=== PATIENT | male | born 1995 | race Caucasian/White ===

== ENCOUNTER 2018-02-15 07:55 | Emergency (ER) | payer OTHER ==
[~2018-02-15] VITALS: Ht 198.1 cm; Wt 79.4 kg
[~2018-02-15 07:55] MED LIST: ADDERALL 20 MG20 M1; AMOXICILLIN 50500 MG PO; AUGMENTIN 875875 MG PO; CARAFATE1 GM/10 ML PO; CEPHALEXIN 500500 M1; FLEXERIL PO; HYDROCODONE-AP1 EAC6 PO; IBUPROFEN 800800 MG PO; NAPROSYN500 MG PO; NORCO 5-325 TA1 EACH PO; ONDANSETRON HCL4 M2 PO; PENICILLIN V P500 MG PO; PEPCID20 MG PO; PERCOCET; PERCOCET PO; PRILOSEC 20 MG20 MG PO; PRILOSEC40 MG PO; ROBAXIN500 MG PO; TORADOL 10 MG T10 MG PO; TUMS; ULTRACET TABLE1 EACH PO; XANAX 0.5 MG0.5 M1; XANAX 0.5 MG0.5 MG PO; XANAX XR1 MG; XANAX1 MG PO; ZANTAC 150MG T150 M1 PO; ZANTAC 150MG T150 MG PO
[2018-02-15 08:03] VITALS: BP 125/71
[2018-02-15] MEDS ORDERED: PREDNISONE 20 M20 M1 PO (08:11)
[2018-02-15] MEDS ORDERED: ZPAK PO (08:11)
== END 2018-02-15 08:20 | disposition home or self-care (01) ==
LOC: M.ERS 07:55
DX: J40 Bronchitis, not specified as acute or chronic (principal); F41.9 Anxiety disorder, unspecified; M41.9 Scoliosis, unspecified; F17.210 Nicotine dependence, cigarettes, uncomplicated; Z88.2 Allergy status to sulfonamides; Z88.6 Allergy status to analgesic agent; Z88.1 Allergy status to other antibiotic agents

== ENCOUNTER 2018-02-26 12:56 | Emergency (ER) | payer OTHER ==
[~2018-02-26] VITALS: Ht 200.7 cm; Wt 77.1 kg
[~2018-02-26 12:56] MED LIST changes: +PREDNISONE 20 M20 M1 PO; +ZPAK PO
[2018-02-26 14:38] VITALS: BP 132/72
== END 2018-02-26 14:39 | disposition home or self-care (01) ==
LOC: M.ERS 12:56
DX: S51.011A Laceration without foreign body of right elbow, initial encounter (principal); F41.9 Anxiety disorder, unspecified; F17.210 Nicotine dependence, cigarettes, uncomplicated; Z88.2 Allergy status to sulfonamides; Z88.8 Allergy status to other drugs, medicaments and biological substances; W17.89XA Other fall from one level to another, initial encounter; Y93.89 Activity, other specified; Y92.89 Other specified places as the place of occurrence of the external cause; Y99.8 Other external cause status

== ENCOUNTER 2018-11-02 18:49 | Emergency (ER) | payer OTHER ==
[~2018-11-02] VITALS: Ht 198.1 cm; Wt 79.4 kg
[2018-11-02] MEDS ORDERED: KEFLEX500 M1 PO (19:50)
[2018-11-02 20:00] VITALS: BP 110/70
== END 2018-11-02 20:00 | disposition home or self-care (01) ==
LOC: M.ERS 18:49
DX: L30.9 Dermatitis, unspecified (principal); F41.9 Anxiety disorder, unspecified; M41.9 Scoliosis, unspecified; Z88.1 Allergy status to other antibiotic agents; Z88.2 Allergy status to sulfonamides; Z88.6 Allergy status to analgesic agent

== ENCOUNTER 2019-08-15 02:49 | Emergency (ER) | payer OTHER ==
[~2019-08-15 02:49] MED LIST changes: +KEFLEX500 M1 PO
== END 2019-08-15 03:02 | disposition left against medical advice (07) ==
LOC: M.ERS 02:49
DX: Z53.21 Procedure and treatment not carried out due to patient leaving prior to being seen by health care provider (principal)

== ENCOUNTER 2019-08-15 21:02 | Emergency (ER) | payer OTHER | END 2019-08-15 21:05 | disposition left against medical advice (07) | LOC: M.ERS 21:02 | DX: Z53.21 Procedure and treatment not carried out due to patient leaving prior to being seen by health care provider (principal) ==

== ENCOUNTER 2019-08-16 00:10 | Emergency (ER) | payer OTHER ==
[~2019-08-16] VITALS: Ht 182.9 cm; Wt 63.5 kg
[2019-08-16 00:55] LABS: ABSOLUTE EOSINOPHILS 0.1 thou/uL (0.0-0.7); ABSOLUTE LYMPHOCYTES 2.1 thou/uL (0.8-5.3); ABSOLUTE MONOCYTES 0.6 thou/uL (0.0-1.2); ABSOLUTE NEUTROPHILS 3.7 thou/uL (1.6-8.1); BASOPHILS 0.7 %; EOSINOPHILS 1.6 %; HEMATOCRIT 40.4 % (42.0-52.0); HEMOGLOBIN 14.1 gm/dL (14.0-18.0); LYMPHOCYTES 32.8 %; MCH 30.2 pg (26.0-34.0); MCV 86.4 fL (80.0-100.0); MONOCYTES 8.6 %; MPV 9.2 fl. (7.2-11.1); NUCLEATED RBCS 0 /100WBC; PLATELET COUNT* 184 thou/uL (150-400); POLYS 56.3 %; RBC 4.67 mil/uL (4.50-6.00); RDW-CV 12.7 % (10.5-14.5); WBC 6.5 thou/uL (4.0-11.0)
[2019-08-16 01:02] LABS: CALCIUM 8.2 mg/dL (8.5-10.1); CREATININE 1.1 mg/dL (0.6-1.3); POTASSIUM 3.4 mmol/L (3.5-5.1)
[2019-08-16 01:07] LABS: ALBUMIN 3.6 g/dL (3.4-5.0); TOTAL BILIRUBIN 0.6 mg/dL (<0.1-1.0); TOTAL PROTEIN 6.6 g/dL (6.4-8.2)
[2019-08-16 01:17] LABS: AMP/METHAMP POSITIVE (Negative); BARBITURATES Negative (Negative); BENZODIAZEPINES Negative (Negative); COCAINE Negative (Negative); METHADONE Negative (Negative); OPIATES Negative (Negative); PCP Negative (Negative); THC POSITIVE (Negative)
[2019-08-16 01:19] LABS: APTT 29.1 Seconds (25.0-31.3); INR 1.1; PROTIME 11.5 Seconds (9.20-11.50)
[2019-08-16 06:15] VITALS: BP 101/60
--- NOTE | 2019-08-16 15:39 | EKG ---
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 : 1995 Requested By: Aida Carranza Order Number: [id number] MD: Aniket Mckinney Measurements Intervals [place] Rate: 75 P: 61 ND: 165 QRS: 33 QRSD: 107 T: 60 QT: 400 QTc: 447 Interpretive Statements Sinus rhythm Compared to ECG 04/25/2014 00:22:40 Sinus bradycardia no longer present Sinus arrhythmia no longer present Electronically Signed On 08-16-2019 15:39:03 CDT by Aniket Mckinney [email or web address] <ELECTRONICALLY SIGNED> By: Aniket Mckinney MD, [facility] 08/16/19 1539 0017 0017 Aniket Mckinney MD, [facility] /EPI
== END 2019-08-16 06:15 | disposition home or self-care (01) ==
LOC: M.ERS 00:10
PROVIDERS: Personal Emergency Response Attendant
DX: F15.929 Other stimulant use, unspecified with intoxication, unspecified (principal); R07.89 Other chest pain; F17.210 Nicotine dependence, cigarettes, uncomplicated; M41.9 Scoliosis, unspecified; Z88.1 Allergy status to other antibiotic agents; Z88.6 Allergy status to analgesic agent; Z88.8 Allergy status to other drugs, medicaments and biological substances

== ENCOUNTER 2019-09-04 11:18 | Emergency (ER) | payer OTHER ==
[~2019-09-04] VITALS: Ht 195.6 cm; Wt 77.1 kg
[2019-09-04 11:30] VITALS: BP 106/70
== END 2019-09-04 11:56 | disposition left against medical advice (07) ==
LOC: M.ERS 11:18
DX: M54.5 Low back pain (principal); M41.9 Scoliosis, unspecified; F17.210 Nicotine dependence, cigarettes, uncomplicated; Z88.2 Allergy status to sulfonamides; Z88.1 Allergy status to other antibiotic agents; Z88.6 Allergy status to analgesic agent

== ENCOUNTER 2019-11-30 02:32 | Emergency (ER) | payer OTHER ==
[~2019-11-30] VITALS: Ht 198.1 cm; Wt 81.7 kg
[2019-11-30 02:55] LABS: ABSOLUTE EOSINOPHILS 0.1 thou/uL (0.0-0.7); ABSOLUTE LYMPHOCYTES 1.8 thou/uL (0.8-5.3); ABSOLUTE MONOCYTES 0.9 thou/uL (0.0-1.2); ABSOLUTE NEUTROPHILS 5.1 thou/uL (1.6-8.1); BASOPHILS 0.4 %; EOSINOPHILS 0.8 %; HEMATOCRIT 49.4 % (42.0-52.0); HEMOGLOBIN 17.4 gm/dL (14.0-18.0); LYMPHOCYTES 22.9 %; MCHC 35.1 g/dL (28.0-37.0); MCV 88.3 fL (80.0-100.0); MONOCYTES 11.5 %; MPV 8.1 fl. (7.2-11.1); NUCLEATED RBCS 0 /100WBC; PLATELET COUNT* 218 thou/uL (150-400); POLYS 64.4 %; RDW-CV 13.2 % (10.5-14.5); WBC 7.9 thou/uL (4.0-11.0)
[2019-11-30 03:04] LABS: CALCIUM 9.2 mg/dL (8.5-10.1); CREATININE 1.2 mg/dL (0.6-1.3); POTASSIUM 3.4 mmol/L (3.5-5.1)
[2019-11-30 03:06] LABS: APTT 28.6 Seconds (25.0-31.3); PROTIME 10.4 Seconds (9.20-11.50)
[2019-11-30 03:17] LABS: ALBUMIN 4.3 g/dL (3.4-5.0); CK-MB MASS 1.2 ng/mL (<0.5-3.6); MAGNESIUM 2.2 mg/dL (1.8-2.4); TOTAL BILIRUBIN 0.4 mg/dL (<0.1-1.0); TOTAL PROTEIN 7.7 g/dL (6.4-8.2)
[2019-11-30 03:28] VITALS: BP 125/75
--- NOTE | 2019-11-30 09:45 | EKG ---
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: : 1995 Requested By: Richard Yuen Order Number: [id number] MD: Galindo Bello Measurements Intervals [place] Rate: 67 P: 9 NC: 149 QRS: 47 QRSD: 122 T: 55 QT: 400 QTc: 423 Interpretive Statements Sinus rhythm left ventricular hypertrophy RsR' in V1 Baseline wander in lead(s) II Compared to ECG 08/16/2019 00:17:41 Intraventricular conduction delay now present Electronically Signed On 11-30-2019 9:44:59 CDT by Galindo Bello [email or web address] <ELECTRONICALLY SIGNED> By: Galindo Bello MD, FAC 11/30/19 0944 0237 0237 Galindo Bello MD, [facility] /EPI
== END 2019-11-30 03:30 | disposition home or self-care (01) ==
LOC: M.ERS 02:32
PROVIDERS: Family Medicine
DX: R07.9 Chest pain, unspecified (principal); F17.210 Nicotine dependence, cigarettes, uncomplicated; Z88.2 Allergy status to sulfonamides; Z88.6 Allergy status to analgesic agent

== ENCOUNTER 2020-03-14 12:26 | Emergency (ER) | payer OTHER ==
[~2020-03-14] VITALS: Ht 195.6 cm; Wt 56.7 kg
[2020-03-14 12:42] VITALS: BP 129/73
== END 2020-03-14 12:53 | disposition left against medical advice (07) ==
LOC: M.ERS 12:26
DX: K62.5 Hemorrhage of anus and rectum (principal); Z53.21 Procedure and treatment not carried out due to patient leaving prior to being seen by health care provider

== ENCOUNTER 2020-04-07 00:15 | Emergency (ER) | payer OTHER ==
[~2020-04-07] VITALS: Ht 198.1 cm; Wt 72.6 kg
[2020-04-07 00:39] LABS: URINE BILIRUBIN NEGATIVE (Negative); URINE BLOOD NEGATIVE (Negative); URINE CLARITY CLEAR; URINE COLOR YELLOW; URINE GLUCOSE-RANDOM NEGATIVE (Negative); URINE KETONES NEGATIVE (Negative); URINE LEUKOCYTES-REFLEX NEGATIVE (Negative); URINE NITRITE-REFLEX NEGATIVE (Negative); URINE PROTEIN TRACE (Negative); URINE SPECIFIC GRAVITY >= 1.030 (1.005-1.030); URINE UROBILINOGEN 0.2 E.U./dl (0.2-1.0)
[2020-04-07 00:46] LABS: AMP/METHAMP POSITIVE (Negative); BARBITURATES Negative (Negative); BENZODIAZEPINES Negative (Negative); COCAINE Negative (Negative); METHADONE Negative (Negative); OPIATES Negative (Negative); PCP Negative (Negative); THC Negative (Negative)
[2020-04-07] MEDS ORDERED: CYCLOBENZAPRINE5 MG PO (01:00)
[2020-04-07] MEDS ORDERED: IBUPROFEN 600600 M1 PO (01:00)
[2020-04-07 01:45] VITALS: BP 149/93
== END 2020-04-07 01:45 | disposition home or self-care (01) ==
LOC: M.ERS 00:15
PROVIDERS: Personal Emergency Response Attendant
DX: K59.00 Constipation, unspecified (principal); Z11.3 Encounter for screening for infections with a predominantly sexual mode of transmission; M54.5 Low back pain; F17.210 Nicotine dependence, cigarettes, uncomplicated; F15.90 Other stimulant use, unspecified, uncomplicated; F11.90 Opioid use, unspecified, uncomplicated; M41.9 Scoliosis, unspecified; Z88.1 Allergy status to other antibiotic agents; Z88.6 Allergy status to analgesic agent; Z88.8 Allergy status to other drugs, medicaments and biological substances

== ENCOUNTER 2020-04-16 02:16 | Emergency (ER) | payer OTHER ==
[~2020-04-16] VITALS: Ht 195.6 cm; Wt 72.6 kg
[~2020-04-16 02:16] MED LIST changes: +CYCLOBENZAPRINE5 MG PO; +IBUPROFEN 600600 M1 PO
[2020-04-16 03:38] VITALS: BP 122/59
== END 2020-04-16 03:39 | disposition home or self-care (01) ==
LOC: M.ERS 02:16
DX: T69.8XXA Other specified effects of reduced temperature, initial encounter (principal); F15.10 Other stimulant abuse, uncomplicated; F17.210 Nicotine dependence, cigarettes, uncomplicated; Z88.1 Allergy status to other antibiotic agents; Z88.2 Allergy status to sulfonamides; Z88.8 Allergy status to other drugs, medicaments and biological substances; X31.XXXA Exposure to excessive natural cold, initial encounter; Y93.89 Activity, other specified; Y92.89 Other specified places as the place of occurrence of the external cause; Y99.8 Other external cause status

== ENCOUNTER 2020-05-03 15:17 | Emergency (ER) | payer OTHER ==
[~2020-05-03] VITALS: Ht 195.6 cm; Wt 72.6 kg
[2020-05-03 16:05] VITALS: BP 122/68
--- NOTE | 2020-05-04 09:07 | EKG ---
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 : 1995 Requested By: Marco Mack Order Number: [id number] MD: Du Victoria Measurements Intervals [place] Rate: 73 P: 81 MO: 162 QRS: 56 QRSD: 107 T: 67 QT: 414 QTc: 457 Interpretive Statements Sinus rhythm RSR' in V1 or V2, probably normal variant Compared to ECG 11/30/2019 02:37:54 Left ventricular hypertrophy no longer present Electronically Signed On 05-04-2020 9:07:17 [employer] by Du Victoria [email or web address] <ELECTRONICALLY SIGNED> By: Du Victoria MD, FACC 05/04/20 0907 1541 1541 Du Victoria MD, [facility] /EPI
== END 2020-05-03 16:05 ==
LOC: M.ERS 15:17
DX: R07.89 Other chest pain (principal); R06.00 Dyspnea, unspecified; M54.9 Dorsalgia, unspecified; R11.0 Nausea; R53.81 Other malaise; F41.9 Anxiety disorder, unspecified; F17.210 Nicotine dependence, cigarettes, uncomplicated; Z88.2 Allergy status to sulfonamides; Z88.6 Allergy status to analgesic agent

== ENCOUNTER 2020-05-25 21:03 | Emergency (ER) | payer OTHER ==
[~2020-05-25] VITALS: Ht 195.6 cm; Wt 68.0 kg
[2020-05-25] MEDS ORDERED: PREMPHASE 0.621 EAC1 PO (21:33)
[2020-05-25] MEDS ORDERED: HALDOL 0.5 MG0.5 MG PO (21:33)
[2020-05-25 21:39] LABS: ABSOLUTE BASOPHILS 0.1 thou/uL (0.0-0.2); ABSOLUTE EOSINOPHILS 0.5 thou/uL (0.0-0.7); ABSOLUTE LYMPHOCYTES 3.1 thou/uL (0.8-5.3); ABSOLUTE MONOCYTES 1.1 thou/uL (0.0-1.2); ABSOLUTE NEUTROPHILS 8.9 thou/uL (1.6-8.1); BASOPHILS 0.6 %; EOSINOPHILS 3.5 %; HEMATOCRIT 43.3 % (42.0-52.0); HEMOGLOBIN 14.2 gm/dL (14.0-18.0); LYMPHOCYTES 22.5 %; MCH 29.3 pg (26.0-34.0); MCHC 32.9 g/dL (28.0-37.0); MCV 89.3 fL (80.0-100.0); MONOCYTES 8.3 %; MPV 7.5 fl. (7.2-11.1); NUCLEATED RBCS 0 /100WBC; PLATELET COUNT* 269 thou/uL (150-400); POLYS 65.1 %; RBC 4.85 mil/uL (4.50-6.00); RDW-CV 14.4 % (10.5-14.5); WBC 13.6 thou/uL (4.0-11.0)
[2020-05-25 21:47] LABS: CALCIUM 9.2 mg/dL (8.5-10.1); CREATININE 1.1 mg/dL (0.6-1.3); POTASSIUM 3.8 mmol/L (3.5-5.1)
[2020-05-25 21:52] LABS: TOTAL BILIRUBIN 0.4 mg/dL (<0.1-1.0); TOTAL PROTEIN 7.8 g/dL (6.4-8.2)
[2020-05-25 21:54] LABS: ALCOHOL 65 mg/dL (<10); SALICYLATE < 2.8 mg/dL (2.8-20.0)
[2020-05-25 21:55] LABS: ACETAMINOPHEN < 2 ug/mL (10-30)
[2020-05-25 22:33] LABS: URINE BILIRUBIN NEGATIVE (Negative); URINE BLOOD NEGATIVE (Negative); URINE CLARITY CLEAR; URINE COLOR YELLOW; URINE GLUCOSE-RANDOM NEGATIVE (Negative); URINE KETONES NEGATIVE (Negative); URINE LEUKOCYTES-REFLEX NEGATIVE (Negative); URINE NITRITE-REFLEX NEGATIVE (Negative); URINE PROTEIN NEGATIVE (Negative); URINE UROBILINOGEN 0.2 E.U./dl (0.2-1.0)
[2020-05-25 22:42] LABS: AMP/METHAMP POSITIVE (Negative); BARBITURATES Negative (Negative); BENZODIAZEPINES Negative (Negative); COCAINE Negative (Negative); METHADONE Negative (Negative); OPIATES Negative (Negative); PCP Negative (Negative); THC Negative (Negative)
[2020-05-26 05:40] VITALS: BP 136/86
== END 2020-05-26 05:41 | disposition home or self-care (01) ==
LOC: M.ERS 21:03
PROVIDERS: Emergency Medicine
DX: F22 Delusional disorders (principal); F19.10 Other psychoactive substance abuse, uncomplicated; F10.920 Alcohol use, unspecified with intoxication, uncomplicated; F41.9 Anxiety disorder, unspecified; F17.210 Nicotine dependence, cigarettes, uncomplicated; Z79.899 Other long term (current) drug therapy; Z88.2 Allergy status to sulfonamides; Z88.6 Allergy status to analgesic agent

== ENCOUNTER 2020-05-26 22:18 | Emergency (ER) | payer OTHER ==
[~2020-05-26] VITALS: Ht 195.6 cm; Wt 68.0 kg
[~2020-05-26 22:18] MED LIST changes: +HALDOL 0.5 MG0.5 MG PO; +PREMPHASE 0.621 EAC1 PO
[2020-05-26 22:27] VITALS: BP 131/83
== END 2020-05-26 22:45 | disposition left against medical advice (07) ==
LOC: M.ERS 22:18
DX: R42 Dizziness and giddiness (principal); Z53.21 Procedure and treatment not carried out due to patient leaving prior to being seen by health care provider; M41.9 Scoliosis, unspecified; F17.210 Nicotine dependence, cigarettes, uncomplicated; Z88.2 Allergy status to sulfonamides; Z88.1 Allergy status to other antibiotic agents; Z88.6 Allergy status to analgesic agent

== ENCOUNTER 2020-05-27 22:16 | Emergency (ER) | payer OTHER ==
[~2020-05-27] VITALS: Ht 198.1 cm; Wt 83.9 kg
[2020-05-28 00:17] VITALS: BP 134/73
== END 2020-05-28 00:18 | disposition home or self-care (01) ==
LOC: M.ERS 22:16
DX: S41.012A Laceration without foreign body of left shoulder, initial encounter (principal); M41.9 Scoliosis, unspecified; F17.210 Nicotine dependence, cigarettes, uncomplicated; Z88.2 Allergy status to sulfonamides; Z88.6 Allergy status to analgesic agent; Z88.1 Allergy status to other antibiotic agents; W18.39XA Other fall on same level, initial encounter; Y93.89 Activity, other specified; Y92.89 Other specified places as the place of occurrence of the external cause; Y99.8 Other external cause status

== ENCOUNTER 2020-06-01 05:29 | Emergency (ER) | payer OTHER ==
[~2020-06-01] VITALS: Ht 190.5 cm; Wt 74.8 kg
[2020-06-01 05:53] LABS: ABSOLUTE BASOPHILS 0.1 thou/uL (0.0-0.2); ABSOLUTE EOSINOPHILS 0.1 thou/uL (0.0-0.7); ABSOLUTE MONOCYTES 0.9 thou/uL (0.0-1.2); ABSOLUTE NEUTROPHILS 8.1 thou/uL (1.6-8.1); BASOPHILS 0.5 %; EOSINOPHILS 1.1 %; HEMATOCRIT 42.9 % (42.0-52.0); HEMOGLOBIN 14.1 gm/dL (14.0-18.0); LYMPHOCYTES 18.2 %; MCHC 32.8 g/dL (28.0-37.0); MCV 88.6 fL (80.0-100.0); MONOCYTES 7.9 %; MPV 7.8 fl. (7.2-11.1); NUCLEATED RBCS 0 /100WBC; PLATELET COUNT* 246 thou/uL (150-400); POLYS 72.3 %; RBC 4.85 mil/uL (4.50-6.00); WBC 11.2 thou/uL (4.0-11.0)
[2020-06-01 06:02] LABS: CALCIUM 8.7 mg/dL (8.5-10.1); CREATININE 1.2 mg/dL (0.6-1.3); POTASSIUM 3.7 mmol/L (3.5-5.1)
[2020-06-01] MEDS ORDERED: KEFLEX500 M1 PO (06:04)
[2020-06-01 06:06] LABS: ALBUMIN 3.9 g/dL (3.4-5.0); TOTAL BILIRUBIN 0.4 mg/dL (<0.1-1.0); TOTAL PROTEIN 7.8 g/dL (6.4-8.2)
[2020-06-01 06:50] VITALS: BP 123/64
== END 2020-06-01 06:50 | disposition home or self-care (01) ==
LOC: M.ERS 05:29
PROVIDERS: Personal Emergency Response Attendant
DX: S41.012D Laceration without foreign body of left shoulder, subsequent encounter (principal); R53.1 Weakness; F41.9 Anxiety disorder, unspecified; F17.210 Nicotine dependence, cigarettes, uncomplicated; Z79.899 Other long term (current) drug therapy; Z88.2 Allergy status to sulfonamides; Z88.6 Allergy status to analgesic agent; X58.XXXD Exposure to other specified factors, subsequent encounter

== ENCOUNTER 2020-06-03 06:34 | Emergency (ER) | payer OTHER | END 2020-06-03 06:52 | disposition left against medical advice (07) | LOC: M.ERS 06:34 | DX: Z53.21 Procedure and treatment not carried out due to patient leaving prior to being seen by health care provider (principal) ==

== ENCOUNTER 2020-06-03 22:51 | Emergency (ER) | payer OTHER ==
[~2020-06-03] VITALS: Ht 193 cm; Wt 72.6 kg
[2020-06-03 22:55] VITALS: BP 106/68
== END 2020-06-04 00:19 | disposition home or self-care (01) ==
LOC: M.ERS 22:51
DX: S90.426A Blister (nonthermal), unspecified lesser toe(s), initial encounter (principal); M41.9 Scoliosis, unspecified; F17.210 Nicotine dependence, cigarettes, uncomplicated; Z88.2 Allergy status to sulfonamides; Z88.1 Allergy status to other antibiotic agents; Z88.6 Allergy status to analgesic agent; X58.XXXA Exposure to other specified factors, initial encounter; Y93.89 Activity, other specified; Y92.89 Other specified places as the place of occurrence of the external cause; Y99.8 Other external cause status

== ENCOUNTER 2020-07-01 17:55 | Emergency (ER) | payer OTHER ==
[~2020-07-01] VITALS: Ht 182.9 cm; Wt 78.0 kg
[2020-07-01 18:24] LABS: ABSOLUTE BASOPHILS 0.1 thou/uL (0.0-0.2); ABSOLUTE EOSINOPHILS 0.1 thou/uL (0.0-0.7); ABSOLUTE LYMPHOCYTES 3.2 thou/uL (0.8-5.3); ABSOLUTE MONOCYTES 1.2 thou/uL (0.0-1.2); ABSOLUTE NEUTROPHILS 7.8 thou/uL (1.6-8.1); BASOPHILS 0.6 %; EOSINOPHILS 0.6 %; HEMATOCRIT 46.9 % (42.0-52.0); HEMOGLOBIN 15.3 gm/dL (14.0-18.0); LYMPHOCYTES 25.8 %; MCH 30.1 pg (26.0-34.0); MCHC 32.6 g/dL (28.0-37.0); MCV 92.4 fL (80.0-100.0); MONOCYTES 9.6 %; MPV 8.4 fl. (7.2-11.1); NUCLEATED RBCS 0 /100WBC; PLATELET COUNT* 281 thou/uL (150-400); POLYS 63.4 %; RBC 5.08 mil/uL (4.50-6.00); RDW-CV 13.9 % (10.5-14.5); WBC 12.3 thou/uL (4.0-11.0)
[2020-07-01 18:27] LABS: AMP/METHAMP POSITIVE (Negative); BARBITURATES Negative (Negative); BENZODIAZEPINES Negative (Negative); COCAINE Negative (Negative); METHADONE Negative (Negative); OPIATES Negative (Negative); PCP Negative (Negative); THC POSITIVE (Negative)
[2020-07-01 18:46] LABS: ALBUMIN 4.7 g/dL (3.4-5.0); CALCIUM 9.6 mg/dL (8.5-10.1); CREATININE 1.6 mg/dL (0.6-1.3); POTASSIUM 3.3 mmol/L (3.5-5.1); TOTAL BILIRUBIN 0.7 mg/dL (<0.1-1.0); TOTAL PROTEIN 8.6 g/dL (6.4-8.2)
[2020-07-01 18:49] LABS: ALCOHOL < 10 mg/dL (<10); SALICYLATE < 2.8 mg/dL (2.8-20.0)
[2020-07-01 18:52] LABS: ACETAMINOPHEN < 2 ug/mL (10-30)
[2020-07-02 06:37] VITALS: BP 100/59
== END 2020-07-02 06:37 | disposition home or self-care (01) ==
LOC: M.ERS 17:55
PROVIDERS: Emergency Medicine
DX: R41.0 Disorientation, unspecified (principal); F15.10 Other stimulant abuse, uncomplicated; M41.9 Scoliosis, unspecified; F17.210 Nicotine dependence, cigarettes, uncomplicated; F41.9 Anxiety disorder, unspecified; Z88.1 Allergy status to other antibiotic agents; Z88.2 Allergy status to sulfonamides; Z88.6 Allergy status to analgesic agent

== ENCOUNTER 2020-07-24 12:32 | Emergency (ER) | payer OTHER ==
[~2020-07-24] VITALS: Ht 195.6 cm; Wt 74.8 kg
[2020-07-24 14:26] LABS: ABSOLUTE EOSINOPHILS 0.1 thou/uL (0.0-0.7); ABSOLUTE LYMPHOCYTES 1.2 thou/uL (0.8-5.3); ABSOLUTE MONOCYTES 0.8 thou/uL (0.0-1.2); ABSOLUTE NEUTROPHILS 5.6 thou/uL (1.6-8.1); BASOPHILS 0.5 %; HEMATOCRIT 41.2 % (42.0-52.0); HEMOGLOBIN 13.9 gm/dL (14.0-18.0); LYMPHOCYTES 15.1 %; MCH 29.9 pg (26.0-34.0); MCHC 33.6 g/dL (28.0-37.0); MONOCYTES 10.5 %; MPV 7.4 fl. (7.2-11.1); NUCLEATED RBCS 0 /100WBC; PLATELET COUNT* 227 thou/uL (150-400); POLYS 72.9 %; RBC 4.63 mil/uL (4.50-6.00); RDW-CV 13.7 % (10.5-14.5); WBC 7.7 thou/uL (4.0-11.0)
[2020-07-24 14:35] LABS: CALCIUM 9.2 mg/dL (8.5-10.1); CREATININE 0.9 mg/dL (0.6-1.3); POTASSIUM 4.1 mmol/L (3.5-5.1)
[2020-07-24] MEDS ORDERED: CEPHALEXIN500 MG PO (15:06)
[2020-07-24] MEDS ORDERED: DOXYCYCLINE 10100 MG PO (15:06)
[2020-07-24 15:22] VITALS: BP 138/71
== END 2020-07-24 15:23 | disposition home or self-care (01) ==
LOC: M.ERS 12:32
PROVIDERS: Nurse Practitioner Family
DX: M79.672 Pain in left foot (principal); F17.210 Nicotine dependence, cigarettes, uncomplicated; F12.90 Cannabis use, unspecified, uncomplicated; Z88.1 Allergy status to other antibiotic agents; Z88.6 Allergy status to analgesic agent; Z88.8 Allergy status to other drugs, medicaments and biological substances

== ENCOUNTER 2020-08-09 00:03 | Emergency (ER) | payer OTHER ==
[~2020-08-09] VITALS: Ht 195.6 cm; Wt 79.2 kg
[~2020-08-09 00:03] MED LIST changes: +CEPHALEXIN500 MG PO; +DOXYCYCLINE 10100 MG PO
[2020-08-09] MEDS ORDERED: AUGMENTIN 500-1 EACH PO (01:14)
[2020-08-09 01:35] VITALS: BP 116/68
== END 2020-08-09 01:35 | disposition home or self-care (01) ==
LOC: M.ERS 00:03
DX: S71.152A Open bite, left thigh, initial encounter (principal); F17.200 Nicotine dependence, unspecified, uncomplicated; Z88.2 Allergy status to sulfonamides; Z88.6 Allergy status to analgesic agent; Z88.8 Allergy status to other drugs, medicaments and biological substances; W64.XXXA Exposure to other animate mechanical forces, initial encounter; Y93.89 Activity, other specified; Y92.89 Other specified places as the place of occurrence of the external cause; Y99.8 Other external cause status

== ENCOUNTER 2020-10-21 04:22 | Emergency (ER) | payer OTHER ==
[~2020-10-21] VITALS: Ht 193 cm; Wt 78.5 kg
[~2020-10-21 04:22] MED LIST changes: +ACETAMINOPHEN-1 EAC2 PO; +AUGMENTIN 500-1 EACH PO
[2020-10-21] MEDS ORDERED: VIBRAMYCIN 100100 MG PO (05:36)
[2020-10-21 05:40] VITALS: BP 120/80
== END 2020-10-21 05:40 | disposition home or self-care (01) ==
LOC: M.ERS 04:22
DX: L02.31 Cutaneous abscess of buttock (principal); F41.9 Anxiety disorder, unspecified; F17.210 Nicotine dependence, cigarettes, uncomplicated; Z79.899 Other long term (current) drug therapy; Z79.2 Long term (current) use of antibiotics; Z88.2 Allergy status to sulfonamides; Z88.6 Allergy status to analgesic agent

== ENCOUNTER 2020-11-04 04:23 | Emergency (ER) | payer OTHER ==
[~2020-11-04] VITALS: Ht 195.6 cm; Wt 74.8 kg
[~2020-11-04 04:23] MED LIST changes: +VIBRAMYCIN 100100 MG PO
[2020-11-04 06:00] VITALS: BP 139/86
== END 2020-11-04 06:00 | disposition home or self-care (01) ==
LOC: M.ERS 04:23
DX: L02.31 Cutaneous abscess of buttock (principal); F17.210 Nicotine dependence, cigarettes, uncomplicated; Z88.2 Allergy status to sulfonamides; Z88.6 Allergy status to analgesic agent; Z79.899 Other long term (current) drug therapy

== ENCOUNTER 2020-11-06 21:50 | Emergency (ER) | payer OTHER ==
[~2020-11-06] VITALS: Ht 190.5 cm; Wt 74.8 kg
[2020-11-06 23:15] VITALS: BP 118/81
== END 2020-11-06 23:15 | disposition left against medical advice (07) ==
LOC: M.ERS 21:50
DX: R21 Rash and other nonspecific skin eruption (principal); Z53.21 Procedure and treatment not carried out due to patient leaving prior to being seen by health care provider

== ENCOUNTER 2020-12-05 00:51 | Emergency (ER) | payer OTHER ==
[~2020-12-05] VITALS: Ht 185.4 cm; Wt 83.9 kg
[2020-12-05 01:34] VITALS: BP 141/81
== END 2020-12-05 01:34 | disposition home or self-care (01) ==
LOC: M.ERS 00:51
DX: G89.29 Other chronic pain (principal); M79.671 Pain in right foot; R00.9 Unspecified abnormalities of heart beat; F41.9 Anxiety disorder, unspecified; F15.10 Other stimulant abuse, uncomplicated; F17.210 Nicotine dependence, cigarettes, uncomplicated; Z88.2 Allergy status to sulfonamides; Z88.6 Allergy status to analgesic agent; Z88.8 Allergy status to other drugs, medicaments and biological substances

== ENCOUNTER 2020-12-11 01:54 | Emergency (ER) | payer OTHER ==
[~2020-12-11] VITALS: Ht 193 cm; Wt 78.0 kg
[2020-12-11 03:03] VITALS: BP 145/80
== END 2020-12-11 03:04 | disposition admitted as inpatient to this hospital (09) ==
LOC: M.ERS 01:54
DX: M79.674 Pain in right toe(s) (principal); M79.671 Pain in right foot; F41.9 Anxiety disorder, unspecified; F17.210 Nicotine dependence, cigarettes, uncomplicated; Z88.2 Allergy status to sulfonamides; Z88.6 Allergy status to analgesic agent

== ENCOUNTER 2020-12-11 04:39 | Emergency (ER) | payer OTHER | END 2020-12-11 04:52 | disposition left against medical advice (07) | LOC: M.ERS 04:39 | DX: R06.7 Sneezing (principal); Z53.21 Procedure and treatment not carried out due to patient leaving prior to being seen by health care provider ==

== ENCOUNTER 2021-01-11 02:25 | Emergency (ER) | payer OTHER ==
[~2021-01-11] VITALS: Ht 195.6 cm; Wt 77.1 kg
[2021-01-11 04:30] VITALS: BP 120/84
== END 2021-01-11 04:30 | disposition home or self-care (01) ==
LOC: M.ERS 02:25
DX: S90.32XA Contusion of left foot, initial encounter (principal); M79.89 Other specified soft tissue disorders; F41.9 Anxiety disorder, unspecified; Z88.2 Allergy status to sulfonamides; Z88.6 Allergy status to analgesic agent; X58.XXXA Exposure to other specified factors, initial encounter; Y93.89 Activity, other specified; Y92.89 Other specified places as the place of occurrence of the external cause; Y99.8 Other external cause status

== ENCOUNTER 2021-01-12 19:02 | Emergency (ER) | payer OTHER ==
[~2021-01-12] VITALS: Ht 190.5 cm; Wt 90.7 kg
[2021-01-12 19:08] VITALS: BP 115/64
== END 2021-01-12 20:00 | disposition left against medical advice (07) ==
LOC: M.ERS 19:02
DX: M79.605 Pain in left leg (principal); Z53.21 Procedure and treatment not carried out due to patient leaving prior to being seen by health care provider

== ENCOUNTER 2021-01-13 05:17 | Emergency (ER) | payer OTHER ==
[~2021-01-13] VITALS: Ht 188 cm; Wt 68.0 kg
== END 2021-01-13 05:41 | disposition left against medical advice (07) ==
LOC: M.ERS 05:17
DX: M79.672 Pain in left foot (principal); Z53.21 Procedure and treatment not carried out due to patient leaving prior to being seen by health care provider

== ENCOUNTER 2021-01-31 22:51 | Emergency (ER) | payer OTHER ==
[~2021-01-31] VITALS: Ht 188 cm; Wt 77.1 kg
[2021-01-31 23:04] VITALS: BP 119/72
--- NOTE | 2021-02-01 11:47 | EKG ---
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 : 1995 Requested By: Aida Carranza Order Number: [id number] MD: Du Victoria Measurements Intervals [place] Rate: 116 P: 76 [place]: 175 QRS: 48 QRSD: 101 T: 39 QT: 315 QTc: 438 Interpretive Statements Sinus tachycardia Biatrial enlargement, possible RSR' in V1 or V2, right VCD or RVH ST elev, probable normal early repol pattern Compared to ECG 05/03/2020 15:41:37 Atrial abnormality now present ST (T wave) deviation now present Sinus rhythm no longer present Electronically Signed On 02-01-2021 11:47:43 [employer] by Du Victoria [email or web address] <ELECTRONICALLY SIGNED> By: Du Victoria MD, [facility] 02/01/21 1147 2256 2256 Du Victoria MD, [facility] /EPI
== END 2021-01-31 23:16 | disposition left against medical advice (07) ==
LOC: M.ERS 22:51
DX: R07.89 Other chest pain (principal); Z53.21 Procedure and treatment not carried out due to patient leaving prior to being seen by health care provider

== ENCOUNTER 2021-02-12 03:44 | Emergency (ER) | payer OTHER | END 2021-02-12 05:39 | disposition home or self-care (01) | LOC: M.ERS 03:44 | DX: R07.81 Pleurodynia (principal); Z53.21 Procedure and treatment not carried out due to patient leaving prior to being seen by health care provider ==

== ENCOUNTER 2021-02-15 06:41 | Emergency (ER) | payer OTHER ==
[~2021-02-15] VITALS: Ht 193 cm; Wt 72.6 kg
[2021-02-15 08:48] VITALS: BP 143/81
== END 2021-02-15 08:48 | disposition left against medical advice (07) ==
LOC: M.ERS 06:41
DX: R45.851 Suicidal ideations (principal); Z53.21 Procedure and treatment not carried out due to patient leaving prior to being seen by health care provider

== ENCOUNTER 2021-02-28 01:34 | Emergency (ER) | payer OTHER ==
[~2021-02-28] VITALS: Ht 195.6 cm; Wt 77.1 kg
[2021-02-28] MEDS ORDERED: CEPHALEXIN500 MG PO (02:09)
[2021-02-28 02:22] VITALS: BP 131/69
== END 2021-02-28 02:22 | disposition home or self-care (01) ==
LOC: M.ERS 01:34
DX: L03.116 Cellulitis of left lower limb (principal); F41.9 Anxiety disorder, unspecified; I25.2 Old myocardial infarction; F15.10 Other stimulant abuse, uncomplicated; F17.210 Nicotine dependence, cigarettes, uncomplicated; G35 Multiple sclerosis; Z88.2 Allergy status to sulfonamides; Z88.8 Allergy status to other drugs, medicaments and biological substances; Z88.6 Allergy status to analgesic agent

== ENCOUNTER 2021-03-09 03:02 | Emergency (ER) | payer OTHER ==
[~2021-03-09] VITALS: Ht 195.6 cm; Wt 77.1 kg
[2021-03-09 04:01] LABS: URINE BILIRUBIN NEGATIVE (Negative); URINE BLOOD NEGATIVE (Negative); URINE CLARITY CLEAR; URINE COLOR YELLOW; URINE GLUCOSE-RANDOM NEGATIVE (Negative); URINE KETONES NEGATIVE (Negative); URINE LEUKOCYTES-REFLEX NEGATIVE (Negative); URINE NITRITE-REFLEX NEGATIVE (Negative); URINE PROTEIN NEGATIVE (Negative); URINE SPECIFIC GRAVITY 1.025 (1.005-1.030); URINE UROBILINOGEN 0.2 E.U./dl (0.2-1.0)
[2021-03-09 04:09] LABS: AMP/METHAMP POSITIVE (Negative); BARBITURATES Negative (Negative); BENZODIAZEPINES Negative (Negative); COCAINE Negative (Negative); METHADONE Negative (Negative); OPIATES Negative (Negative); PCP Negative (Negative); THC POSITIVE (Negative)
[2021-03-09 04:18] LABS: ABSOLUTE EOSINOPHILS 0.1 thou/uL (0.0-0.7); ABSOLUTE LYMPHOCYTES 1.8 thou/uL (0.8-5.3); ABSOLUTE MONOCYTES 0.6 thou/uL (0.0-1.2); ABSOLUTE NEUTROPHILS 3.9 thou/uL (1.6-8.1); BASOPHILS 0.3 %; EOSINOPHILS 0.9 %; HEMATOCRIT 42.4 % (42.0-52.0); HEMOGLOBIN 14.1 gm/dL (14.0-18.0); LYMPHOCYTES 27.9 %; MCH 29.3 pg (26.0-34.0); MCHC 33.3 g/dL (28.0-37.0); MCV 87.8 fL (80.0-100.0); MONOCYTES 9.3 %; MPV 8.2 fl. (7.2-11.1); NUCLEATED RBCS 0 /100WBC; PLATELET COUNT* 217 thou/uL (150-400); POLYS 61.6 %; RBC 4.83 mil/uL (4.50-6.00); RDW-CV 13.8 % (10.5-14.5); WBC 6.4 thou/uL (4.0-11.0)
[2021-03-09 04:27] LABS: CALCIUM 8.5 mg/dL (8.5-10.1); CREATININE 1.2 mg/dL (0.6-1.3); POTASSIUM 3.6 mmol/L (3.5-5.1)
[2021-03-09 04:28] LABS: ALBUMIN 3.6 g/dL (3.4-5.0); TOTAL BILIRUBIN 0.3 mg/dL (<0.1-1.0); TOTAL PROTEIN 6.8 g/dL (6.4-8.2)
[2021-03-09 04:29] LABS: ALCOHOL < 10 mg/dL (<10); SALICYLATE 2.7 mg/dL (2.8-20.0)
[2021-03-09 04:34] LABS: ACETAMINOPHEN < 2 ug/mL (10-30)
[2021-03-09 06:31] VITALS: BP 147/72
== END 2021-03-09 06:32 | disposition home or self-care (01) ==
LOC: M.ERS 03:02
PROVIDERS: Emergency Medicine
DX: F15.10 Other stimulant abuse, uncomplicated (principal); Z20.822 Contact with and (suspected) exposure to COVID-19; F12.10 Cannabis abuse, uncomplicated; F41.9 Anxiety disorder, unspecified; F17.210 Nicotine dependence, cigarettes, uncomplicated; Z88.2 Allergy status to sulfonamides; Z88.6 Allergy status to analgesic agent

== ENCOUNTER 2021-03-09 21:43 | Emergency (ER) | payer OTHER ==
[~2021-03-09] VITALS: Ht 195.6 cm; Wt 72.6 kg
[2021-03-10 01:59] VITALS: BP 126/78
== END 2021-03-10 02:01 | disposition left against medical advice (07) ==
LOC: M.ERS 21:43
DX: R51.9 Headache, unspecified (principal); Z53.21 Procedure and treatment not carried out due to patient leaving prior to being seen by health care provider